=== PATIENT | female | born 1995 | race Native Hawaiian/Other Pacific Islander ===

== ENCOUNTER 2016-09-04 19:46 | Emergency (ER) | payer BC ==
[~2016-09-04] VITALS: Ht 167.6 cm; Wt 61.7 kg
== END 2016-09-04 21:52 | disposition home or self-care (01) ==
LOC: ED 19:46 → EDBD 19:46 → ED 19:46
DX: L50.0 Allergic urticaria (principal); L23.3 Allergic contact dermatitis due to drugs in contact with skin; T50.995A Adverse effect of other drugs, medicaments and biological substances, initial encounter; Y92.098 Other place in other non-institutional residence as the place of occurrence of the external cause
CPT/HCPCS: 96372; 99283; J2930

== ENCOUNTER 2017-08-04 04:29 | Emergency (ER) | payer BC ==
[~2017-08-04] VITALS: Ht 167.6 cm; Wt 59.9 kg
[2017-08-04 05:31] LABS: PLATELET COUNT 225 K/uL (152-353)
[2017-08-04 05:43] LABS: POTASSIUM 3.7 mmol/L (3.6-5.2); SODIUM 136 mmol/L (136-145)
== END 2017-08-04 06:40 | disposition home or self-care (01) ==
LOC: ED 04:29 → EDBD 04:29 → ED 06:40
DX: J02.0 Streptococcal pharyngitis (principal)
CPT/HCPCS: 80053; 85027; 87804; 87880; 96372; 99283; J0696